=== PATIENT | female | born 1970 | race Caucasian/White ===

== ENCOUNTER 2019-12-28 01:10 | Emergency (ER) | payer BC ==
[~2019-12-28] VITALS: Ht 157.5 cm; Wt 57.2 kg
--- NOTE | 2019-12-28 01:40 | NUR ---
PT BIB RA WITH A C/O HIGH BP [employer]OR. PT STATED THAT SHE HAD ORAL SX 1 WEEK AGO AND IS JUST FINISHED ANTIBIOTICS. PT STATED THAT SHE WAS GETTING L EAR PRESSURE THAT RAJ TO THE TOP OF HER HEAD AND IT WORRIED HER SO SHE TOOK HER BP. HER BP WAS 180/102 AT THAT TIME. STATED THAT SHE TOOK 10MG OF BENAZPRIL AT 2300 AND 10MG OF PROPRANOLOL AT 1900 (PT HAS A HX OF ANXIETY). PT STATED THAT SHE IS NORMALLY HYPOTONIC AND HER BP RUNS LOW. PER PT, PT CHECKED HER BP SEVERAL TIMES OVER MANY HOURS AND IT WAS GOING UP AND DOWN. PT BECAME WORRIED AND CALLED 911. PT'S BP WAS WNL IN THE FIELD AND UPON ARRIVAL TO THE ER.
[2019-12-28 01:56] LABS: BASOPHILS # (AUTO) 0.1 /CMM (0.0-0.2); BASOPHILS % (AUTO) 0.7 % (0.0-2.0); EOSINOPHILS % (AUTO) 1.7 % (0.0-6.0); HEMATOCRIT 34 % (33-45); MEAN CORPUSCULAR HGB CONC 33 g/dl (31.0-36.0); MEAN CORPUSCULAR VOLUME 96 fL (82-100); MONOCYTES # (AUTO) 0.7 /CMM (0.1-1.30); MONOCYTES % (AUTO) 5.3 % (2.0-12.0); NEUTROPHILS # (AUTO) 10.2 /CMM (1.8-8.9); NEUTROPHILS % (AUTO) 77.3 % (43.0-81.0); PLATELET COUNT (AUTO) 393 /CMM (150-450); RED BLOOD CELL COUNT(AUTO) 3.51 MIL/uL (4.0-5.2); WHITE BLOOD COUNT (AUTO) 13.2 K/uL (4.3-11.0)
[2019-12-28 02:04] LABS: CREATININE 0.6 mg/dL (0.6-1.3)
[2019-12-28 02:10] LABS: ALBUMIN 3.6 g/dL (3.4-5.0); BILIRUBIN,TOTAL 0.3 mg/dL (0.2-1.0); TOTAL PROTEIN, SERUM 6.4 g/dL (6.4-8.2)
--- NOTE | 2019-12-28 02:29 | NUR ---
Patient discharged to home in stable condition. Written and verbal after care instructions given. Patient verbalizes understanding of instruction. PT TO F/U WITH HER PMD. VSS. NAD NOTED. PT AMBULATED OUT WITH A STEADY GAIT. PT'S IS DRIVING PT HOME.
[2019-12-28 02:31] VITALS: BP 106/60
== END 2019-12-28 02:32 | disposition home or self-care (01) ==
LOC: ER 01:18
DX: F41.9 Anxiety disorder, unspecified (principal)
CPT/HCPCS: 36415; 80053-TC; 85025-TC